=== PATIENT | female | born 1970 | race Caucasian/White ===

== ENCOUNTER 2016-10-20 15:25 | Emergency (ER) | payer OTHER ==
[~2016-10-20] VITALS: Ht 160 cm; Wt 50.0 kg
[~2016-10-20 15:25] MED LIST: PRED2.5T4
[2016-10-20 15:35] VITALS: BP 116/58
[2016-10-20] MEDS ORDERED: SILVER SULFADIAZINE 1% CREAM 25GM TOP ONE (16:45)
== END 2016-10-20 17:38 | disposition home or self-care (01) ==
LOC: ER 15:56
DX: T22.10XA Burn of first degree of shoulder and upper limb, except wrist and hand, unspecified site, initial encounter (principal); I10 Essential (primary) hypertension; M32.9 Systemic lupus erythematosus, unspecified; X11.8XXA Contact with other hot tap-water, initial encounter; Y93.89 Activity, other specified; Y99.8 Other external cause status; Y92.89 Other specified places as the place of occurrence of the external cause
CPT/HCPCS: 16000; 99284

== ENCOUNTER 2017-08-06 16:11 | Emergency (ER) | payer OTHER ==
[~2017-08-06] VITALS: Ht 152.4 cm; Wt 50.0 kg
[2017-08-06 19:22] LABS: CLARITY URINE CLEAR (CLEAR); COLOR URINE YELLOW (YELLOW); KETONES URINE NEGATIVE (NEGATIVE); LEUKOCYTE ESTERASE URINE TRACE (NEGATIVE); NITRITE URINE NEGATIVE (NEGATIVE); OCCULT BLOOD URINE NEGATIVE (NEGATIVE); PROTEIN URINE NEGATIVE (NEGATIVE); SPECIFIC GRAVITY URINE 1.008 (1.005-1.030); UROBILINOGEN URINE 0.2 E.U./dL (0.2-1.0)
[2017-08-06] MEDS ORDERED: ALBUTEROL (0.083%) 2.5MG/3ML NEB HHN STA (20:30)
[2017-08-06] MEDS ORDERED: IPRATROPIUM BROMIDE (0.02%) 0.5MG/2.5ML NEB HHN STA (20:30)
[2017-08-06] MEDS ORDERED: PREDNISONE 20MG TABLET PO STA (20:30)
[2017-08-06 22:00] VITALS: BP 104/64
== END 2017-08-06 22:15 | disposition home or self-care (01) ==
LOC: ER 17:00
DX: J45.909 Unspecified asthma, uncomplicated (principal); R05 Cough; M54.5 Low back pain
CPT/HCPCS: 71045; 81003; 81025; 94640; 99285; J7512; J7611

== ENCOUNTER 2018-09-12 05:21 | Emergency (ER) | payer OTHER ==
[~2018-09-12] VITALS: Ht 154.9 cm; Wt 54.0 kg
[2018-09-12 05:32] VITALS: BP 116/74
[2018-09-12] MEDS ORDERED: KETOROLAC 30MG/ML VIAL IM ONE (07:30)
== END 2018-09-12 09:17 | disposition home or self-care (01) ==
LOC: ER 05:21
DX: M25.531 Pain in right wrist (principal); J45.909 Unspecified asthma, uncomplicated; M32.9 Systemic lupus erythematosus, unspecified; E03.9 Hypothyroidism, unspecified; F17.210 Nicotine dependence, cigarettes, uncomplicated; Y08.89XA Assault by other specified means, initial encounter
CPT/HCPCS: 29125; 73110; 73130; 96372; 99283; J1885

== ENCOUNTER 2018-11-10 14:39 | Emergency (ER) | payer OTHER ==
[~2018-11-10] VITALS: Ht 154.9 cm; Wt 55.0 kg
[2018-11-10] MEDS ORDERED: KETOROLAC 30MG/ML VIAL IM ONE (15:15)
[2018-11-10] MEDS ORDERED: HYDROCODONE/ACETAMINOPHEN 5/325MG TABLET PO ONE (15:15)
[2018-11-10 15:18] VITALS: BP 100/69
== END 2018-11-10 15:36 | disposition home or self-care (01) ==
LOC: ER 14:48
DX: M79.641 Pain in right hand (principal); E03.9 Hypothyroidism, unspecified
CPT/HCPCS: 29125; 96372; 99283; J1885

== ENCOUNTER 2018-11-20 19:58 | Inpatient (IN) | payer OTHER ==
[~2018-11-20] VITALS: Ht 152.4 cm; Wt 62.6 kg
[2018-11-20] MEDS ORDERED: ASPIRIN 81MG TABLET PO ONE (21:30)
[2018-11-20 23:12] LABS: BASOPHILS % 0.4 % (0.0-2.0); EOSINOPHILS % 1.4 % (0.0-5.0); HEMATOCRIT. 35.8 % (36.0-48.0); HEMOGLOBIN. 11.3 g/dL (12.0-16.0); LYMPHOCYTES % 10.1 % (20.0-50.0); MEAN CORPUSCULAR HEMOGLOBIN 23.2 pg (28.0-32.0); MEAN CORPUSCULAR VOLUME 73.3 fL (81.0-99.0); MEAN PLATELET VOLUME 7.9 fl (7.4-10.4); MONOCYTES % 5.9 % (2.0-8.0); NEUTROPHILS % 82.2 % (40.0-76.0); PLATELET 403 x1000/uL (130-400); RED BLOOD CELL COUNT 4.89 mill/uL (4.2-5.4); RED CELL DISTRIBUTION WIDTH 16.3 % (11.6-14.6)
[2018-11-20 23:15] LABS: CHLORIDE 104 mEq/L (98-107)
[2018-11-20] MEDS ORDERED: MORPHINE SULFATE 4 MG/ML CPJ (NOT FOR IM USE) IV STA (23:47)
[2018-11-20] MEDS ORDERED: METHYLPREDNISOLONE SOD SUCC 125 MG/2 ML VIAL IV STA (23:47)
[2018-11-20] MEDS ORDERED: ONDANSETRON HCL 4MG/2ML INJ IV STA (23:47)
[2018-11-21] MEDS ORDERED: IOHEXOL-350 100 ML BOTTLE ONE (03:45)
[2018-11-21 08:50] VITALS: BP 95/56
[2018-11-21 09:12] VITALS: BP 95/56
[2018-11-21] MEDS ORDERED: DOCUSATE SODIUM 100MG CAPSULE PO PRN (09:45)
[2018-11-21] MEDS ORDERED: ACETAMINOPHEN 325MG TABLET PO PRN (09:45)
[2018-11-21] MEDS ORDERED: ENOXAPARIN 40MG/0.4ML SYR SUBCUT SCH (10:00)
[2018-11-21] MEDS ORDERED: PREDNISONE 5MG TABLET PO SCH (10:00)
[2018-11-21] MEDS: IPRATROPIUM/ALBUTEROL 0.5-3(2.5)MG/3ML NEB HHN SCH ×2 (11:40→16:51)
[2018-11-21 12:00] VITALS: BP 107/58
[2018-11-21 12:56] LABS: CHLORIDE 103 mEq/L (98-107)
[2018-11-21 12:58] LABS: BASOPHILS % 0.1 % (0.0-2.0); HEMATOCRIT. 36.4 % (36.0-48.0); HEMOGLOBIN. 11.5 g/dL (12.0-16.0); LYMPHOCYTES % 13.4 % (20.0-50.0); MEAN CORPUSCULAR HEMOGLOBIN 23.2 pg (28.0-32.0); MEAN CORPUSCULAR VOLUME 73.4 fL (81.0-99.0); MEAN PLATELET VOLUME 8.3 fl (7.4-10.4); NEUTROPHILS % 85.5 % (40.0-76.0); PLATELET 425 x1000/uL (130-400); RED BLOOD CELL COUNT 4.96 mill/uL (4.2-5.4); RED CELL DISTRIBUTION WIDTH 16.6 % (11.6-14.6)
[2018-11-21] MEDS ORDERED: SODIUM CHLORIDE 0.9% INJ 3ML FLUSH IVF SCH (14:00)
[2018-11-21] MEDS ORDERED: IOHEXOL-300 100 ML BOTTLE ONE (15:07)
[2018-11-21 16:00] VITALS: BP 105/63
[2018-11-21 17:41] VITALS: BP 105/63
== END 2018-11-21 19:35 | disposition home or self-care (01) | DRG 313 ==
LOC: ER 19:58 → 8WST 11-21 00:38 → ENRESERV 11-21 07:13
PROVIDERS: ADMIT Ophthalmology; ATTEND Ophthalmology
DX: R07.89 Other chest pain (principal); I95.9 Hypotension, unspecified; D72.829 Elevated white blood cell count, unspecified; E03.9 Hypothyroidism, unspecified; Z98.891 History of uterine scar from previous surgery
CPT/HCPCS: 36415; 71045; 71275; 83880; 84443; 84484; 93005; 94640; 99285; J1650; J2270; J2405; J2930; J7512; J7620; Q9967

== ENCOUNTER 2021-05-04 17:38 | Emergency (ER) | payer OTHER ==
[~2021-05-04] VITALS: Ht 157.5 cm; Wt 57.0 kg
[2021-05-04 17:43] VITALS: BP 114/85
== END 2021-05-04 18:58 | disposition left against medical advice (07) ==
LOC: ER 17:38
DX: Z53.21 Procedure and treatment not carried out due to patient leaving prior to being seen by health care provider (principal)